=== PATIENT | female | born 2000 | race Caucasian/White ===

== ENCOUNTER → 2019-08-08 | Outpatient (CLI) | payer SELFPAY ==
--- NOTE | 2019-08-08 15:27 | Diagnostic Imaging Report ---
PROCEDURE: CT abdomen and pelvis without contrast. TECHNIQUE: Multiple contiguous axial images were obtained through the abdomen and pelvis without the use of intravenous contrast. Auto Exposure Controls were utilized during the CT exam to meet ALARA standards for radiation dose reduction. INDICATION: Hematuria. COMPARISON: No prior studies are available for comparison. FINDINGS: The lung bases are clear. The liver and gallbladder are unremarkable. No biliary ductal dilatation is seen. The pancreas and spleen are unremarkable. No adrenal mass is detected. The left kidney is unremarkable. Right kidney contains numerous nonobstructing calculi. Largest calculus appears to be in the upper pole on the right measuring approximately 6 mm in size. No definite ureteral calculi or hydronephrosis is seen. No bladder calculi are detected. The aorta is non-aneurysmal. The bowel loops are normal caliber. There is no ascites in the abdomen or pelvis. No acute inflammatory process is seen. Uterus and bladder are unremarkable. IMPRESSION: Right-sided nonobstructing nephrolithiasis. No ureteral calculi or evidence of hydronephrosis is detected. Dictated by: Dictated on workstation # [id number]
== END ==
LOC: RAD 14:53
PROVIDERS: ATTEND Urology
DX: N20.0 Calculus of kidney (principal)
CPT/HCPCS: 74176

== ENCOUNTER → 2019-08-13 | Outpatient (CLI) | payer SELFPAY ==
--- NOTE | 2019-08-13 15:36 | Diagnostic Imaging Report ---
INDICATION: Right renal stones. Hematuria. COMPARISON: CT dated 08/08/2019. FINDINGS: Two frontal radiographic views of the abdomen and pelvis were obtained. Multiple extraosseous calcifications are seen projecting over the right renal shadow. Largest is seen projecting over the superior pole and measures approximately 7 mm. No other unexpected extraosseous calcifications or radiopaque foreign bodies are identified. Small bowel loops are nondistended. There is no large collection of free intraperitoneal air. Osseous structures show no gross acute abnormalities. IMPRESSION: 1. Right-sided nephrolithiasis. 2. Nonobstructed small bowel gas pattern. Dictated by: Dictated on workstation # [id number]
== END ==
LOC: RAD 14:46
PROVIDERS: ATTEND Urology
DX: N20.0 Calculus of kidney (principal)
CPT/HCPCS: 74018

== ENCOUNTER 2019-10-22 15:21 | Outpatient (CLI) | payer OTHER ==
[~2019-10-22] VITALS: Ht 165.1 cm; Wt 65.9 kg
[2019-10-23] MEDS ORDERED: NITR-65 PO (15:06)
[2019-10-23] MEDS ORDERED: TRAM50TA2 PO (15:06)
[2019-10-23] MEDS ORDERED: TAMS0.4C98 PO (15:06)
[2019-10-23] MEDS ORDERED: PHEN-640 PO (15:06)
== END 2019-10-22 15:59 | disposition home or self-care (01) ==
LOC: PREOP 15:21
PROVIDERS: ATTEND Urology
DX: Z01.818 Encounter for other preprocedural examination (principal)

== ENCOUNTER → 2019-10-22 | Outpatient (CLI) | payer OTHER ==
[~2019-10-22] MED LIST: NITR-65 PO; PHEN-640 PO; TAMS0.4C98 PO; TRAM50TA2 PO
--- NOTE | 2019-10-22 13:24 | Diagnostic Imaging Report ---
INDICATION: Nephrolithiasis. FINDINGS: The largest right renal calculus visualized today measures 6.6 mm, unchanged from the prior exam. The previous smaller lower pole stones are not visualized at that location; however, these are now believed to be seen in the distal third of the right ureter within the right hemipelvis. There are tandem stones with each measuring about 5 mm at that level. IMPRESSION: The intrarenal right-sided renal calculus is 6.6 mm, unchanged. Previously, there were smaller lower pole stones which now are believed to be in the distal right ureter. Dictated by: Dictated on workstation # [id number]
== END ==
LOC: RAD 12:30
PROVIDERS: ATTEND Urology
DX: N20.0 Calculus of kidney (principal)
CPT/HCPCS: 74018

== ENCOUNTER 2019-10-23 08:22 | Day surgery (SDC) | payer OTHER ==
[2019-10-23] VITALS (11 sets, daily range): BP systolic 107–128; BP diastolic 64–82
[~2019-10-23] VITALS: Ht 165 cm; Wt 65.9 kg
--- NOTE | 2019-10-23 08:44 | Progress Note-Pre Operative ---
Pre-Operative Progress Note H&P Reviewed The H&P was reviewed, patient examined and no changes noted. Date Seen by Provider: Oct 23, 2019 Time Seen by Provider: 08:43 Date H&P Reviewed: Oct 23, 2019 Time H&P Reviewed: 08:43 Pre-Operative Diagnosis: RT RENAL STONE DAVON REED MD Oct 23, 2019 08:44 POS
[2019-10-23] MEDS ORDERED: cefTRIAXone FOR IV USE 1,000 MG in WATER (STERILE) FOR INJECTION 10 ML IV ONE (08:45)
--- NOTE | 2019-10-23 09:00 | Diagnostic Imaging Report ---
INDICATION: Preop ESWL. Study compared to 10/22/2019. Large stone measuring 5 to 6 mm projects over the right kidney change. Adjacent right pelvic calcifications course of the distal right ureter about 5 mm each unchanged in location. No radiodense left-sided stone burden. IMPRESSION: Intrarenal and ureteral calcifications on the right unchanged. Dictated by: Dictated on workstation # [id number]
[2019-10-23] MEDS: LACTATED RINGERS 1,000 ML IV PRN ×2 (09:10→13:33)
[2019-10-23] MEDS ORDERED: DEXAMETHASONE 10 MG/ML (DECADRON) 1 ML VIAL ONE (11:46)
[2019-10-23] MEDS ORDERED: LIDOCAINE PF 2% 5 ML (XYLOCAINE) VIAL ONE (11:46)
[2019-10-23] MEDS ORDERED: MIDAZOLAM 2 MG/2 ML (VERSED) VIAL ONE (11:46)
[2019-10-23] MEDS ORDERED: proPOfol 200 MG/20 ML (DIPRIVAN) VIAL IV ONE (11:46)
[2019-10-23] MEDS ORDERED: ONDANSETRON 4 MG/2 ML (SDV) Z0FRAN ONE (11:46)
[2019-10-23] MEDS ORDERED: SEVOFLURANE (ULTANE) 15 ML INHAL SOLN ONE ×7 (11:46→13:34)
[2019-10-23] MEDS ORDERED: fentaNYL INJECTION 100 MCG/2 ML AMP ONE (11:46)
[2019-10-23] MEDS ORDERED: ROCURONIUM 10 MG/ML 5 ML SYRINGE IV ONE (12:03)
[2019-10-23] MEDS ORDERED: FUROSEMIDE 40 MG/4 ML INJ (LASIX) ONE (12:37)
[2019-10-23] MEDS ORDERED: KETOROLAC 30 MG/ML VIAL ONE (12:37)
--- NOTE | 2019-10-23 12:44 | Progress Note-Post Operative ---
Post-Operative Progess Note Surgeon (s)/Plant Wire Chief (s) Surgeon DAVON REED MD Plant Wire Chief: NONE Pre-Operative Diagnosis RT RENAL AND URETERAL STONES Post-Operative Diagnosis SAME Procedure & Operative Findings Date of Procedure 10/23/19 Procedure Performed/Findings RT URETEROSCOPY WITH ATTEMPTED BASKET AND RT ESWL Anesthesia Type GENERAL Estimated Blood Loss Estimated blood loss (mL): NONE Specimens/Packing Specimens Removed NONE Packing: NONE DAVON REED MD Oct 23, 2019 12:44 POS
--- NOTE | 2019-10-23 12:46 | Discharge Inst-Urology ---
Discharge Inst-Urology Reconcile Patient Problems Problems Reviewed?: Yes Patient Instructions/Follow Up Plan/Assessment/Instructions Please make appointment to been seen in office Sunday 11/04, KUB prior to it KUB on way home Post ESWL instructions Increase oral fluids. Diet and Activity as tolerated. If questions or concerns contact your physician Or seek help at emergency department. DAVON REED MD Oct 23, 2019 12:46 POS
[2019-10-23] MEDS ORDERED: ONDANSETRON 4 MG/2 ML (SDV) Z0FRAN IVP PRN (14:00)
[2019-10-23] MEDS ORDERED: MEPERIDINE (DEMEROL) INJ 50 MG/ML IVP ONE (14:00)
[2019-10-23] MEDS ORDERED: fentaNYL INJECTION 100 MCG/2 ML AMP IVP ONE (14:00)
[2019-10-23] MEDS ORDERED: TMSL.4C PO (15:06)
[2019-10-23] MEDS ORDERED: NITR-65 PO (15:06)
[2019-10-23] MEDS ORDERED: PHEN-640 PO (15:06)
[2019-10-23] MEDS ORDERED: TRM50T PO (15:06)
--- NOTE | 2019-10-23 16:15 | Diagnostic Imaging Report ---
INDICATION: Nephrolithiasis. FINDINGS: An aggregate of likely pulverized stone fragments projects over the right kidney with an aggregate diameter of 6.3 mm. There are two stones projecting at the level of the distal right ureter, unchanged. The larger more distal one measures 4.4 mm. IMPRESSION: The dominant intrarenal stone on the right has likely been pulverized in the interim with dimensions above. The distal right ureteral stone fragments appear unchanged in size and location. No new abnormality. Dictated by: Dictated on workstation # [id number]
--- NOTE | 2019-10-23 23:27 | OPERATIVE REPORT ---
DATE OF SERVICE: 10/23/2019 PREOPERATIVE DIAGNOSIS: Right distal ureteral and right renal stones. POSTOPERATIVE DIAGNOSIS: Right distal ureteral and right renal stones. OPERATION PERFORMED: Right ureteroscopy was attempted, stone basket and right ESWL x2. SURGEON: Kevin Reed MD ANESTHESIA: General. COMPLICATIONS: None. DESCRIPTION OF PROCEDURE: Under satisfactory general anesthesia, the patient in lithotomy position in the cystoscopy suite. Genitalia were prepped and draped in the usual sterile fashion. Urethra had some stenosis, which responded to the 23-Occitan scope. Bladder was inspected and was normal except for sluggish efflux on the right side. Using the foroblique lens, I dilated the right ureteral orifice intramural portion to accommodate a 6.9 Occitan semi-rigid ureteroscope. I could not reach close enough to the stone to do a lithotripsy safely. I tried to pass a basket, but could not engage the stone, so I discontinued further attempt and removed the ureteroscope, reinserted the cystoscope to empty the bladder, moved the patient on the ESWL table. The right distal ureteral stones were localized first. Shocks were delivered at kV of 8 and then 9 and total of 3000 shocks seemed to have fragmented the stones very nicely. Then, we moved on the right renal stone, localized it, delivered shocks at kV of 6 for a total of 2500 shocks completely fragmenting the stone. The patient received 40 mg of Lasix and 30 mg of Toradol IV. She tolerated the procedure and anesthesia well and was sent to recovery room in stable condition. Job ID: [id number] DocumentID: [id number] Dictated Date: 10/23/2019 13:30:55 Linotype Operator Date: 10/23/2019 23:26:52 Dictated By: KEVIN REED MD
--- OUTSIDE RECORDS SUMMARY | 2019-11-17 20:59 | XMS REPORT | Continuity of Care Document ---
Author Organization Unknown Address Unknown Phone Unavailable Allergies Active Description Code Type Severity Reaction Onset Reported/Identified Relationship to Patient Clinical Status Yes No Known Drug Allergies [id number] Drug Allergy Unknown N/A 10/22/2019 Medications There is no data. Problems Date Dx Coded Attending Type Code Diagnosis Diagnosed By 08/12/2019 BRIANNA GRIJALVA, DAVON Olsen Ot N20.0 CALCULUS OF KIDNEY 08/23/2019 BRIANNA GRIJALVA, DAVON Olsen Ot N20.0 CALCULUS OF KIDNEY 08/30/2019 BRIANNA GRIJALVA, DAVON Olsen Ot N20.0 CALCULUS OF KIDNEY 08/30/2019 BRIANNA GRIJALVA, DAVON Olsen Ot N20.0 CALCULUS OF KIDNEY 08/30/2019 BRIANNA GRIJALVA, DAVON A Ot N20.0 CALCULUS OF KIDNEY 10/22/2019 BRIANNA GRIJALVA, DAVON A Ot N20.0 CALCULUS OF KIDNEY 10/22/2019 BRIANNA GRIJALVA, DAVON A Ot N20.0 CALCULUS OF KIDNEY 10/22/2019 DAVON REED MD Ot Z01.8 18 ENCOUNTER FOR OTHER PREPROCEDURAL EXAMIN 10/25/2019 DAVON REED MD Ot N20.0 CALCULUS OF KIDNEY 11/06/2019 BRIANNA GRIJALVA, DAVON Olsen Ot N20.2 CALCULUS OF KIDNEY WITH CALCULUS OF URET 11/06/2019 BRIANNA GRIJALVA, DAVON Olsen Ot Z98.8 90 OTHER SPECIFIED POSTPROCEDURAL STATES 11/12/2019 BRIANNA GRIJALVA, DAVON Olsen Ot N20.0 CALCULUS OF KIDNEY Procedures There is no data. Results Test Result Range CULTURE, URINE - 03/26/19 13:48 CULTURE, URINE, ROUTINE SEE NOTE NRG Methicillin resistant Staphylococcus aur eus (MRSA) screening culture - 10/23/19 08:54 Methicillin resistant Staphylococcus aureus (MRSA) scr eening culture NEG NRG Encounters ACCT No. Visit Date/Time Discharge Status Pt. Type Provider Facility Loc./Unit Complaint [id number] 08/26/2019 11:39:00 08/26/2019 23:59: 00 DIS Outpatient SELF, PHY [id number] 11/04/2019 14:05:00 23:59:59 CLS Outpatient DAVON REED MD [facility] RAD RT UTERAL, RENAL STONES [id number] 10/23/2019 08:22:00 15:55:00 DIS Outpatient DAVON REED MD [facility] SDC RIGHT RENAL STONE [id number] 10/22/2019 12:30:00 23:59:59 CLS Outpatient DAVON REED MD [facility] RAD RT RENAL STONES [id number] 10/22/2019 15:21:00 15:59:00 DIS Outpatient DAVON REED MD [facility] PREOP RIGHT ESWL [id number] 08/13/2019 14:46:00 23:59:59 CLS Outpatient DAVON REED MD [facility] RAD RT RENAL STONES [id number] 08/08/2019 14:53:00 23:59:59 CLS Outpatient DAVON REED MD [facility] RAD GROSS HEMATURIA [id number] 03/25/2019 13:20:00 03/25/2019 23:59: 59 CLS Outpatient LIVIA ESCALONA AIDANEdwige GALLEGOS [id number] 03/26/2019 13:20:00 Document Registration
== END 2019-10-23 15:55 | disposition home or self-care (01) ==
LOC: SDC 08:22
PROVIDERS: ATTEND Urology
DX: N20.2 Calculus of kidney with calculus of ureter (principal)
CPT/HCPCS: 74018; 84703; 87081

== ENCOUNTER → 2019-11-04 | Outpatient (CLI) | payer OTHER ==
--- NOTE | 2019-11-04 15:07 | Diagnostic Imaging Report ---
INDICATION: Status post lithotripsy. TIME OF EXAM: 2:38 p.m. COMPARISON: Correlation is made to prior exam from 10/23/2019. FINDINGS: Multiple calcific fragments overlying the upper pole right renal shadow seen previously are no longer visualized although there are some fragments overlying the lower pole of the right kidney on today's study. No definite left-sided radiopaque urinary tract calculi are seen. Calcific density in the right pelvis measures 4 mm. Second calculus adjacent to this noted on prior study is no longer visualized. IMPRESSION: Right-sided urinary tract calculi, as described. Dictated by: Dictated on workstation # [id number]
== END ==
LOC: RAD 14:05
PROVIDERS: ATTEND Urology
DX: N20.2 Calculus of kidney with calculus of ureter (principal); Z98.890 Other specified postprocedural states
CPT/HCPCS: 74018

== ENCOUNTER 2019-11-25 14:31 | Outpatient (RCR) | payer OTHER ==
[2019-11-21 10:39] LABS: BUN/CREATININE RATIO 13; CALCIUM 9.2 MG/DL (8.5-10.1); CARBON DIOXIDE 18 MMOL/L (21-32); CHLORIDE 111 MMOL/L (98-107); CREATININE SERUM 0.79 MG/DL (0.60-1.30); GFR ESTIMATED > 60; GLUCOSE 90 MG/DL (70-105); PHOSPHORUS 2.9 MG/DL (2.3-4.7); SODIUM 139 MMOL/L (135-145)
[~2019-11-25 14:31] MED LIST changes: -TAMS0.4C98 PO; +TMSL.4C PO; -TRAM50TA2 PO; +TRM50T PO
== END 2020-02-19 | disposition home or self-care (01) ==
LOC: LAB 14:31
PROVIDERS: ATTEND Urology
DX: N20.2 Calculus of kidney with calculus of ureter (principal)
CPT/HCPCS: 36415; 80048; 82140; 82340; 82507; 82570; 83735; 83945; 83970; 83986; 84100; 84105; 84133; 84300; 84392; 84550; 84560; 88300

== ENCOUNTER → 2020-04-24 | Outpatient (CLI) | payer OTHER ==
--- NOTE | 2020-04-24 13:19 | Diagnostic Imaging Report ---
INDICATION: Renal stones. COMPARISON: November 04, 2019. TECHNIQUE: Two radiographs of the abdomen dated April 24, 2020. FINDINGS: 6 mm calcification overlying the right renal shadow is again identified, appearing stable from the prior examination. Additionally, 4 mm calcification overlying the right pelvis appears stable from the prior exam. No new calcifications overlying the renal shadows or the expected course of bilateral ureters. Nonobstructive bowel gas pattern. No free air. No acute osseous abnormality. IMPRESSION: Stable-appearing examination with right-sided urinary tract calculi again identified. This includes a distal right ureterolith. Dictated by: Dictated on workstation # [id number]
== END ==
LOC: LAB 11:24
PROVIDERS: ATTEND Urology
DX: N20.0 Calculus of kidney (principal)
CPT/HCPCS: 74018

== ENCOUNTER → 2020-11-06 | Outpatient (CLI) | payer OTHER ==
--- NOTE | 2020-11-06 11:48 | Diagnostic Imaging Report ---
Indication: Nephrolithiasis KUB 11:38 AM There is 6 mm calculus projecting over the right kidney. Bowel gas pattern is normal. There are no pathologic masses. IMPRESSION: Right nephrolithiasis. The previously seen calculus in the distal ureter is no longer apparent. Dictated by: Dictated on workstation # [id number]
== END ==
LOC: RAD 11:23
PROVIDERS: ATTEND Urology
DX: N20.0 Calculus of kidney (principal)
CPT/HCPCS: 74018

== ENCOUNTER → 2021-04-20 | Outpatient (CLI) | payer OTHER ==
--- NOTE | 2021-04-20 14:24 | Diagnostic Imaging Report ---
INDICATION: Right-sided pain, hematuria, renal stones. COMPARISON: 11/06/2020 TECHNIQUE: Single radiograph of abdomen dated 04/20/2021 FINDINGS: 9 mm calcification is identified overlying the right renal shadow, increased in size since prior exam. No suspicious calcifications overlying the left renal shadow. Nonobstructive bowel gas pattern. No free air. No acute osseous abnormality. IMPRESSION: 0.9 cm calculus associated with the right kidney, increased in size since the prior radiographs from October 2020. Dictated by: Dictated on workstation # [id number]
--- NOTE | 2021-04-20 14:34 | Diagnostic Imaging Report ---
PROCEDURE: CT urinary tract, rule out kidney stone. TECHNIQUE: Multiple contiguous axial images were obtained through the abdomen and pelvis without the use of intravenous contrast. Auto Exposure Controls were utilized during the CT exam to meet ALARA standards for radiation dose reduction. INDICATION: History of nephrolithiasis, right-sided flank pain. COMPARISON: Exam compared with study of 08/08/2019. FINDINGS: There is a large nonobstructing intrarenal calculus within the right lower pole calyx at 8.4 mm. There is no hydroureteronephrosis. No radiodense ureteral stone or bladder calculus. No perinephric or periureteric edema. The appendix is normal. There is a mildly elevated fecal load at the rectosigmoid but no overt evidence for impaction or wesley constipation. No small bowel dilatation. Liver, gallbladder, bile ducts, spleen, adrenals, and pancreas are unremarkable. The aorta is nonaneurysmal. There is no ascites, abscess, hematoma, or acute fluid collection. The uterus, adnexa, and urinary bladder are unremarkable. IMPRESSION: 1. Large nonobstructing intrarenal stone in the right kidney. No hydroureteronephrosis or opaque ureteral calculi. Rectosigmoidal fecal stasis without obstructive features. 2. Unremarkable appendix and no acute adnexal abnormality. Dictated by: Dictated on workstation # [id number]
== END ==
LOC: RAD 13:54
PROVIDERS: ATTEND Urology
DX: N20.0 Calculus of kidney (principal)
CPT/HCPCS: 74018; 74176

== ENCOUNTER 2021-04-21 06:53 | Day surgery (SDC) | payer SELFPAY ==
[2021-04-21] VITALS (9 sets, daily range): BP systolic 100–125; BP diastolic 53–80
[~2021-04-21] VITALS: Ht 165.1 cm; Wt 63.6 kg
--- NOTE | 2021-04-21 07:04 | Progress Note-Pre Operative ---
Pre-Operative Progress Note H&P Reviewed The H&P was reviewed, patient examined and no changes noted. Date Seen by Provider: Apr 21, 2021 Time Seen by Provider: 07:04 Date H&P Reviewed: Apr 21, 2021 Time H&P Reviewed: 07:04 Pre-Operative Diagnosis: RT RENAL STONE DAVON REED MD Apr 21, 2021 07:04
--- NOTE | 2021-04-21 07:27 | Progress Note-Post Operative ---
Post-Operative Progess Note Surgeon (s)/Memorial Adviser (s) Surgeon DAVON REED MD Memorial Adviser: NONE Pre-Operative Diagnosis RT RENAL STONE Post-Operative Diagnosis SAME Procedure & Operative Findings Date of Procedure 04/21/21 Procedure Performed/Findings RT ESWL Anesthesia Type GENERAL Estimated Blood Loss Estimated blood loss (mL): NONE Specimens/Packing Specimens Removed NONE Packing: NONE DAVON REED MD Apr 21, 2021 07:27
[2021-04-21] MEDS ORDERED: cefTRIAXone FOR IV USE 1,000 MG in WATER (STERILE) FOR INJECTION 10 ML IV ONE (07:30)
--- NOTE | 2021-04-21 07:37 | Discharge Inst-Urology ---
Discharge Inst-Urology Reconcile Patient Problems Problems Reviewed?: Yes Final Diagnosis RT RENAL STONE Patient Instructions/Follow Up Plan/Assessment/Instructions Please make appointment to been seen in office Thursday 05/03, KUB prior to it. KUB on way home Post ESWL instructions Increase oral fluids for 48 hours and then as needed. Diet and Activity as tolerated. If questions or concerns contact your physician Or seek help at emergency department. DAVON REED MD Apr 21, 2021 07:37
[2021-04-21] MEDS: LACTATED RINGERS 1,000 ML IV PRN ×2 (07:45→10:20)
--- NOTE | 2021-04-21 08:04 | Diagnostic Imaging Report ---
INDICATION: right extracorporeal shock wave lithotripsy for nephrolithiasis. TECHNIQUE: Single supine view of the abdomen 7:33 AM CORRELATION STUDY: 04/20/2021 FINDINGS: Approximately 8 mm calcification projects over the right renal silhouette. Appears generally stable. Moderate stool and gas throughout the colon. Nonobstructive appearance. Osseous structures are unremarkable. IMPRESSION: 1. Overall, relatively stable appearance, approximately 8 9 mm calcification over the right renal silhouette. Dictated by: Dictated on workstation # [id number]
[2021-04-21] MEDS ORDERED: ONDANSETRON 4 MG/2 ML (SDV) Z0FRAN ONE (08:10)
[2021-04-21] MEDS ORDERED: LIDOCAINE PF 2% 5 ML (XYLOCAINE) VIAL ONE (08:10)
[2021-04-21] MEDS ORDERED: proPOfol 200 MG/20 ML (DIPRIVAN) VIAL IV ONE (08:10)
[2021-04-21] MEDS ORDERED: SEVOFLURANE (ULTANE) 15 ML INHAL SOLN ONE (08:10)
[2021-04-21] MEDS ORDERED: MIDAZOLAM 2 MG/2 ML (VERSED) VIAL ONE (08:11)
[2021-04-21] MEDS ORDERED: fentaNYL INJ 100 MCG/2 ML AMP ONE (08:11)
[2021-04-21] MEDS ORDERED: KETOROLAC 30 MG/ML VIAL ONE (08:55)
[2021-04-21] MEDS ORDERED: FUROSEMIDE 40 MG/4 ML INJ (LASIX) ONE (08:55)
--- NOTE | 2021-04-21 09:49 | Anesthesia-General Post-Op ---
General Patient Condition Mental Status/LOC: Same as Preop Cardiovascular: Satisfactory Nausea/Vomiting: Absent Respiratory: Satisfactory Pain: Controlled Complications: Absent Post Op Complications Complications None Follow Up Care/Instructions Patient Instructions None needed. Anesthesia/Patient Condition Patient Condition Patient is doing well, no complaints, stable vital signs, no apparent adverse anesthesia problems. No complications reported per nursing. MARJAN PERRY CRNA Apr 21, 2021 09:49
[2021-04-21] MEDS ORDERED: TRM50T PO (10:34)
[2021-04-21] MEDS ORDERED: TMSL.4C PO (10:34)
[2021-04-21] MEDS ORDERED: NITR-65 PO (10:34)
--- NOTE | 2021-04-21 11:28 | Diagnostic Imaging Report ---
INDICATION: Urinary tract calculi. AP view of the abdomen is obtained with comparison made study of earlier in the day. FINDINGS: There does appear to be fragmentation of stone in the midportion of the right kidney. Largest residual stone measures approximately 0.5 cm in size. No definite stones are seen along the course of the ureters or within the bladder. IMPRESSION: Fragmentation of presumed right renal stone with largest fragment reaching 0.5 cm in size. Dictated by: Dictated on workstation # [id number]
--- NOTE | 2021-04-21 13:24 | OPERATIVE REPORT ---
DATE OF SERVICE: 04/21/2021 PREOPERATIVE DIAGNOSIS: Right renal stone. POSTOPERATIVE DIAGNOSIS: Right renal stone. OPERATION PERFORMED: Right ESWL. SURGEON: Kevin Reed MD ANESTHESIA: General. COMPLICATIONS: None. DESCRIPTION OF PROCEDURE: Under satisfactory general anesthesia, the patient in supine position on the ESWL table, the right renal stone was localized. Shocks were delivered at kV of 6. Total of 3000 shocks were delivered with good fragmentation of the stone. The patient received 30 mg of Toradol and 40 mg of Lasix IV at the end of the procedure. She tolerated the procedure and anesthesia well and was sent to recovery room in stable condition. Job ID: [id number] DocumentID: [id number] Dictated Date: 04/21/2021 09:28:40 Statistical Modeler Date: 04/21/2021 13:24:49 Dictated By: KEVIN REED MD
== END 2021-04-21 11:35 ==
LOC: SDC 06:53
PROVIDERS: ATTEND Urology
DX: N20.0 Calculus of kidney (principal)
CPT/HCPCS: 74018; 84703; 87081

== ENCOUNTER → 2021-04-30 | Outpatient (CLI) | payer OTHER ==
--- NOTE | 2021-04-30 11:15 | Diagnostic Imaging Report ---
EXAMINATION: Supine abdomen at 1054 hours. INDICATION: Nephrolithiasis. FINDINGS: The CT abdomen/pelvis exam of 04/20/2021 noted a large 8.4 mm nonobstructive calculus within the right kidney. That calcific density did appear smaller on the prior exam of 04/21/2021. Reportedly the patient had undergone ESWL. On this study, the calcific density is better visualized as the bowel gas obscuring the right kidney seen previously has diminished. There are at least 3 calcific fragments in this region. The largest of these fragments measures approximately 4.2 mm. There is also a faint 2.7 mm calcific density low in the pelvis on the right. Just inferior to this calcific density, there is a 2nd similar sized calcific density. These calcifications could be within the distal right ureter as they were not clearly evident on the prior study. If further imaging is desired, then CT of the abdomen and pelvis would be recommended. There is still no sign of nephrolithiasis of the left. No other acute abnormality identified. IMPRESSION: 1. The large calculus within the right kidney seen previously has been fragmented. There are several calcifications still overlying the right kidney and there may also be 2 calcific fragments in the distal right ureter. Recommendations as above. 2. The overall appearance of the abdomen is otherwise stable. Dictated by: Dictated on workstation # [id number]
== END ==
LOC: RAD 09:53
PROVIDERS: ATTEND Urology
DX: N20.0 Calculus of kidney (principal)
CPT/HCPCS: 74018